=== PATIENT | female | born 1990 | race African-American/Black ===

== ENCOUNTER 2019-04-05 14:25 | Emergency (ER) | payer SELFPAY ==
[~2019-04-05] VITALS: Ht 165.1 cm; Wt 62.6 kg
--- NOTE | 2019-04-05 14:27 | Emergency Room Report ---
History of Present Illness General Chief Complaint: Behavioral Complaint Present Illness HPI Unknown age female, approximately 30 days presents with altered mental status of unknown origin, patient is muttering to herself, she has old hospital socks, a known history of psychiatric disorder patient was walking around the [place] station with her shirt off, patient is currently refusing to answer questions she is only responding to internal stimuli history is limited. Unknown start date unknown aggravating relieving factors severity is severe, constant (Lj Echeverria MD) Allergies: Coded Allergies: UNABLE TO ASSESS (Unverified , 04/05/19) Patient History Limited by: medical condition - Altered mental status Past Medical History: see triage record Reviewed Nursing Documentation: PMH: Agreed; PSxH: Agreed Last Menstrual Period: UNK Now: No - UNK (Lj Echeverria MD) Last Menstrual Period: UNK Now: No - UNK (Piotr Wilkins MD) Nursing Documentation-PMH Past Medical History: Deferred (Lj Echeverria MD) Review of Systems All Other Systems: limited - Altered mental status (Lj Echeverria MD) Physical Exam Vital Signs Date Time Temp Pulse Resp B/P (MAP) Pulse Ox O2 Delivery O2 Flow Rate FiO2 04/05/19 14:19 98.2 93 16 118/73 (88) 98 Room Air Sp02 EP Interpretation: reviewed, normal General Appearance: no apparent distress, alert Head: normocephalic, atraumatic Eyes: bilateral eye PERRL, bilateral eye EOMI ENT: uvula midline, moist mucus membranes Neck: supple, thyroid normal, supple/symm/no masses Respiratory: lungs clear, no respiratory distress, no retraction, no accessory muscle use Cardiovascular #1: normal peripheral pulses, regular rate, rhythm, no edema, no gallop, no murmur Gastrointestinal: non tender, soft, no guarding, no rebound Musculoskeletal: normal inspection Neurologic: alert, responsive Psychiatric: anxious Skin: no rash, warm/dry (Lj Echeverria MD) Medical Decision Making Diagnostic Impression: Primary Impression: Behavioral disorder Additional Impression: Amphetamine abuse ER Course 30-year-old female presents with altered mental status, Joanie Hernandez, not giving him her name, concern for possible intoxication, infection versus intoxication versus psychiatric disorder Patient will be observed until drugs wear off, patient found to have amphetamines in the system which may have contributed to her running around Patient signed out to Dr. Wilkins Laboratory Tests Test 04/05/19 14:55 04/05/19 15:18 White Blood Count 8.1 K/UL (4.8-10.8) Red Blood Count 4.31 M/UL (4.20-5.40) Hemoglobin 11.3 G/DL (12.0-16.0) L Hematocrit 35.0 % (37.0-47.0) L Mean Corpuscular Volume 81 FL (80-99) Mean Corpuscular Hemoglobin 26.2 PG (27.0-31.0) L Mean Corpuscular Hemoglobin Concent 32.2 G/DL (32.0-36.0) Red Cell Distribution Width 12.9 % (11.6-14.8) Platelet Count 418 K/UL (150-450) Mean Platelet Volume 6.0 FL (6.5-10.1) L Neutrophils (%) (Auto) 60.5 % (45.0-75.0) Lymphocytes (%) (Auto) 25.7 % (20.0-45.0) Monocytes (%) (Auto) 9.2 % (1.0-10.0) Eosinophils (%) (Auto) 3.7 % (0.0-3.0) H Basophils (%) (Auto) 0.9 % (0.0-2.0) Sodium Level 141 MMOL/L (136-145) Potassium Level 3.5 MMOL/L (3.5-5.1) Chloride Level 105 MMOL/L (98-107) Carbon Dioxide Level 25 MMOL/L (21-32) Anion Gap 11 mmol/L (5-15) Blood Urea Nitrogen 12 mg/dL (7-18) Creatinine 0.6 MG/DL (0.55-1.30) Estimate Glomerular Filtration Rate > 60 mL/min (>60) Glucose Level 93 MG/DL (74-106) Calcium Level 9.1 MG/DL (8.5-10.1) Total Bilirubin 0.5 MG/DL (0.2-1.0) Aspartate Amino Transferase (AST) 44 U/L (15-37) H Alanine Aminotransferase (ALT) 49 U/L (12-78) Alkaline Phosphatase 56 U/L (46-116) Total Protein 8.3 G/DL (6.4-8.2) H Albumin 4.0 G/DL (3.4-5.0) Globulin 4.3 g/dL Albumin/Globulin Ratio 0.9 (1.0-2.7) L Salicylates Level 1.3 ug/mL (2.8-20) L Acetaminophen Level < 2 MCG/ML (10-30) L Serum Alcohol < 3 mg/dL Urine HCG, Qualitative Negative (NEGATIVE) Urine Opiates Screen Negative (NEGATIVE) Urine Barbiturates Screen Negative (NEGATIVE) Phencyclidine (PCP) Screen Negative (NEGATIVE) Urine Amphetamines Screen Positive (NEGATIVE) H Urine Benzodiazepines Screen Negative (NEGATIVE) Urine Cocaine Screen Negative (NEGATIVE) Urine Marijuana (THC) Screen Positive (NEGATIVE) H (Lj Echeverria MD) Last Vital Signs Date Time Temp Pulse Resp B/P (MAP) Pulse Ox O2 Delivery O2 Flow Rate FiO2 04/05/19 14:19 98.2 93 16 118/73 (88) 98 Room Air (Lj Echeverria MD) Reevaluation Time: 22:33 Reevaluation Impression Assumed care of the patient from Dr. Echeverria approximately 2200. Briefly this is a Jaonie Hernandez who presented for agitation and abnormal behavior walking around the street naked. She appears intoxicated and tox screen is positive for marijuana and amphetamines. She will be monitored in the emergency department until clinically sober at which point she will be reassessed and further information will be obtained. 0600: Patient had a brief episode where she was awake and lucid. She provided us with her name and date of and did admit to using some drugs earlier in the day but could not remember which ones or how she got to the emergency department. She then again became confused and behaved erratically though was redirectable and laid down to sleep again. She will require further metabolization but ultimately I believe she will be discharged unless she fails to improve. (Piotr Wilkins MD) Condition: Stable Referrals: [facility] Patient Instructions: Stimulant Use Disorder-Amphetamines Lj Echeverria MD Apr 05, 2019 14:27 Piotr Wilkins MD Apr 05, 2019 22:34
[2019-04-05 14:29] VITALS: BP 122/75
--- NOTE | 2019-04-05 14:29 | NUR ---
ED Nurse Note: PT BROUGHT IN BY RA 58 DUE TO BEHAVIORAL COMPLAINT. PER EMS, PT WAS FOUND IN A [place]AS ST[place] AND CLIMBING UP GAS TANKS. PT WAS ALSO NAKED AT THAT TIME AND WITH BIZARRE BEHAVIOR. AWAKE BUT NOT ANSWERING QUESTIONS AND UNCOOPERATIVE, NOTED TO BE LAUGHING BY HERSLEF AND TALKATIVE. SITTER ANH AT THE BED SIDE.
--- NOTE | 2019-04-05 14:54 | NUR ---
ED Nurse Note: COLLECTED BLOOD SPECIMEN THEN SENT.
--- NOTE | 2019-04-05 14:54 | NUR ---
ED Nurse Note: BELONGINGS PLACED ON PSYCH LOCKER # 2.
[2019-04-05 15:15] LABS: BASOPHILS % (AUTO) 0.9 % (0.0-2.0); EOSINOPHILS % (AUTO) 3.7 % (0.0-3.0); HEMOGLOBIN 11.3 G/DL (12.0-16.0); LYMPHOCYTES % (AUTO) 25.7 % (20.0-45.0); MEAN CORPUSCULAR VOLUME 81 FL (80-99); MONOCYTES % (AUTO) 9.2 % (1.0-10.0); NEUTROPHILS % (AUTO) 60.5 % (45.0-75.0); PLATELET COUNT 418 K/UL (150-450); RED BLOOD COUNT 4.31 M/UL (4.20-5.40); RED CELL DISTRIBUTION WIDTH 12.9 % (11.6-14.8); WHITE BLOOD COUNT 8.1 K/UL (4.8-10.8)
[2019-04-05 15:33] LABS: ANION GAP 11 mmol/L (5-15); BLOOD UREA NITROGEN 12 mg/dL (7-18); CALCIUM 9.1 MG/DL (8.5-10.1); CARBON DIOXIDE 25 MMOL/L (21-32); CHLORIDE 105 MMOL/L (98-107); CREATININE 0.6 MG/DL (0.55-1.30); POTASSIUM 3.5 MMOL/L (3.5-5.1); SODIUM 141 MMOL/L (136-145)
[2019-04-05 15:47] LABS: ALANINE AMINOTRANSFERASE 49 U/L (12-78); ALKALINE PHOSPHATASE 56 U/L (46-116); ASPARTATE AMINO TRANSFERASE 44 U/L (15-37); BILIRUBIN,TOTAL 0.5 MG/DL (0.2-1.0)
--- NOTE | 2019-04-05 16:05 | NUR ---
ED Nurse Note: SITVERA AT THE BED SIDE. PT SLEEPING ON GURNEY WITH NO DISTRESS.
[2019-04-05 16:10] LABS: ALBUMIN/GLOBULIN RATIO 0.9 (1.0-2.7)
--- NOTE | 2019-04-05 18:13 | NUR ---
ED Nurse Note: DINNER LEFT AT THE BED SIDE PT STILL SLEEPING. SITTER ANH AT THE BED SIDE.
--- NOTE | 2019-04-05 19:20 | NUR ---
HAND-OFF: Report given to AVI VELEZ.
[2019-04-05 19:30] VITALS: BP 125/74
--- NOTE | 2019-04-05 19:30 | NUR ---
ED Nurse Note: Patient sleeping, VSS at this time, skin is warm to touch, no acute disstress noticed.
[2019-04-05 23:30] VITALS: BP 135/75
--- NOTE | 2019-04-06 00:30 | NUR ---
ED Nurse Note: Patient is sleeping, VSS at this time, pt calm and cooperative. Sitter by bed side.
[2019-04-06 03:30] VITALS: BP 130/72
--- NOTE | 2019-04-06 04:30 | NUR ---
ED Nurse Note: Patient was able to ambulate to the bathroom with steady gait, asking for food and juice. AAO x4, VSS at this time, no acute disstress noticed. Sitter by bed side.
--- NOTE | 2019-04-06 07:09 | NUR ---
HAND-OFF: Report given to AGUSTIN Sawyer. Patient is sleeping no acute disstress noticed.
--- NOTE | 2019-04-06 07:30 | NUR ---
Pt refused vital signs at this time. Pt educated regarding necessity and risks.
--- NOTE | 2019-04-06 08:02 | NUR ---
Pt came out of the bathroom and started running for the door. Nurses told pt she was about to be discharged but pt continued to run out the door and past and pushed everyone aside. Pt threw off gown and started running down the street. MARCEL Quan notified. Dr. Wilkins notified.
--- NOTE | 2019-04-06 08:18 | NUR ---
JACOBO notified. Other RN found pt outside the hospital and said pt was in clothes.
== END 2019-04-06 09:20 | disposition home or self-care (01) ==
LOC: EDSEX 14:25 → EDBD 14:25 → EMR 15:13 → EDBD 15:13 → EMR 04-06 09:20
DX: F91.9 Conduct disorder, unspecified (principal); F15.10 Other stimulant abuse, uncomplicated
CPT/HCPCS: 36415; 80053; 80307; 81025; 85025; 96360; 99284; G0480